=== PATIENT | female | born 1990 | race Caucasian/White ===

== ENCOUNTER 2018-02-16 09:57 | Inpatient (IN) | payer OTHER ==
[2018-02-16] VITALS (23 sets, daily range): BP systolic 128–159; BP diastolic 65–93; PULSE 83–115; TEMP 98.4–98.9
[~2018-02-16] VITALS: Ht 180.3 cm; Wt 96.4 kg
[2018-02-16] MEDS ORDERED: PRENATAL MVI (10:19)
[2018-02-16 12:15] LABS: BASO % 0.3 % (0.0-2.0); EOS % 0.1 % (0-4.0); GRAN # 10.1 (1.4-6.5); HEMATOCRIT 37.3 % (37.0-47.0); HEMOGLOBIN 12.9 g/dl (12.5-16.0); LYMPH # 2.1 (1.2-3.4); MEAN CELL VOLUME 99 fl (80.0-100.0); MEAN CORPUSCULAR HEMOGLOBIN 34 pg (27.0-31.0); MEAN CORPUSCULAR HGB CONC 35 g/dl (33.0-37.0); MEAN PLATELET VOLUME 11.1 fl (7.4-10.4); MONO % 7.2 % (1.7-9.3); PLATELET COUNT 235 K/mm3 (130-400); RED BLOOD COUNT 3.78 M/mm3 (4.10-5.30); REDCELL DISTRIBUTION WIDTH-CV 11.9 % (11.5-14.5)
[2018-02-17 00:30] VITALS: BP 135/90; PULSE 94; TEMP 98.1
[2018-02-17 04:30] VITALS: BP 134/79; PULSE 97; TEMP 98.3
[2018-02-17 07:40] VITALS: BP 136/70; PULSE 110; TEMP 98.5
[2018-02-17 16:00] VITALS: BP 144/80; PULSE 108; TEMP 98.8
[2018-02-17 21:15] VITALS: BP 131/79; PULSE 104; TEMP 98.5
[2018-02-18] MEDS ORDERED: MOTRIN 800800 MG/TAB PO (10:19)
[2018-02-18 10:30] VITALS: BP 142/87; PULSE 88; TEMP 98.8
== END 2018-02-18 16:00 | disposition home or self-care (01) | DRG 807 ==
LOC: LDRO 09:57 → EDBD 11:30 → OB 11:30 → LDR 11:30 → OB 18:12
PROVIDERS: Obstetrics & Gynecology
PROC: 10D07Z6 Extraction of Products of Conception, Vacuum, Via Natural or Artificial Opening (ICD-10-PCS; principal; 2018-02-16)
PROC: 0UQGXZZ Repair Vagina, External Approach (ICD-10-PCS; 2018-02-16)
PROC: 0UQMXZZ Repair Vulva, External Approach (ICD-10-PCS; 2018-02-16)
DX: O76 Abnormality in fetal heart rate and rhythm complicating labor and delivery (principal); Z37.0 Single live birth; Z3A.38 38 weeks gestation of pregnancy; O71.82 Other specified trauma to perineum and vulva; O99.824 Streptococcus B carrier state complicating childbirth; O70.0 First degree perineal laceration during delivery
CPT/HCPCS: J2540; J2590; J2795; J7120